=== PATIENT | male | born 1980 | race Caucasian/White ===

== ENCOUNTER 2016-10-10 07:44 | Emergency (ER) | payer SELFPAY ==
[~2016-10-10] VITALS: Ht 180.3 cm; Wt 94.5 kg
[~2016-10-10 07:44] MED LIST: CYCL-36 PO; MIRA33502 PO; MORP1INJ45 PO; NEUR800T PO; OXYC1TAB13 PO; SENO8.6T6 PO; TRAZ100T50 PO
[2016-10-10 07:54] VITALS: BP 113/78; PULSE 82; RESP 17; TEMP 98.5; O2SAT 97
--- NOTE | 2016-10-10 08:20 | PD ---
HPI Chief Complaint: Skin Problem Time Seen by Provider: 08:16 Travel History International Travel<30 days: No Contact w/Intl Traveler<30days: No Traveled to known affect area: No History of Present Illness HPI 36-year-old male presents to the ER today, states that 3 days ago he had a small cut on his left lower lip area, had brushed his dirty hand against it, and since then it has become more swollen, painful, pain is radiating up to his left jaw area. He has not been feeling well. He denies any fevers or any other issues. Pain in the left lower lip areas as 8 out of 10 currently. Modifying Factors: None Associated Signs & Symptoms: Left lower lip pain and swelling Risk Factors: None PFSH Past Medical History Medical History: Denies Significant Hx Cancer: No Cardiovascular Problems: No Endocrine: No Genitourinary: No Immune Disorder: No Musculoskeletal: No Neurologic: No Reproductive: No Respiratory: No Influenza Vaccination: No Past Surgical History Neurologic Surgery: Yes (C SPINE, HALO) Other Surgery: Yes (HALO) Social History Alcohol Use: Yes (OCC) Tobacco Use: Yes (1PPD) Substance Use: Yes Allergies-Medications (Allergen,Severity, Reaction): Coded Allergies: No Known Allergies (Verified , 10/10/16) Reported Meds & Prescriptions Reported Meds & Active Scripts Active No Active Prescriptions or Reported Medications Review of Systems Except as stated in HPI: all other systems reviewed are Neg Physical Exam Narrative GENERAL: Well-nourished, well-developed middle age white male patient in mild distress. SKIN: Focused skin assessment warm/dry. HEAD: Normocephalic. There is a 1 x 2 cm area of left lower lip edema, tenderness, fluctuance. Face is symmetrical with no facial swelling or erythema. EYES: No scleral icterus. No injection or drainage. NECK: Supple, trachea midline. No JVD or lymphadenopathy. CARDIOVASCULAR: Regular rate and rhythm without murmurs, gallops, or rubs. RESPIRATORY: Breath sounds equal bilaterally. No accessory muscle use. GASTROINTESTINAL: Abdomen soft, non-tender, nondistended. MUSCULOSKELETAL: No cyanosis, or edema. BACK: Nontender without obvious deformity. No CVA tenderness. Data Data Last Documented VS Vital Signs Date Time Temp Pulse Resp B/P Pulse Ox O2 Delivery O2 Flow Rate FiO2 10/10/16 07:54 98.5 82 17 113/78 97 Orders Lidocaine 2% Inj (Xylocaine 2% Inj) (10/10/16 08:30) MDM Medical Decision Making Medical Screen Exam Complete: Yes Emergency Medical Condition: Yes Medical Record Reviewed: Yes Differential Diagnosis Left lower lip swelling and paincellulitis versus abscess versus allergic reaction Narrative Course There is possibility of an abscess in this area. A attempt at abscess drainage was done without significant pus drainage. At this point, I plan would be to put the patient on antibiotics and have him return for any worsening in swelling or pain. The plan was discussed with him and he states understanding. Procedures Procedure Narrative The lower lip was cleaned and prepped with iodine and half cc of 2% lidocaine was placed on the lower lip area. And small incision was placed in the lower lip at place of greatest edema. However, there is not significant pus drainage at this time. Gauze was placed over the area until bleeding stopped. Patient tolerated procedure well. Diagnosis Primary Impression: Cellulitis of skin of lip Med/Other Pt SpecificInfo: Prescription(s) given Scripts Sulfamethoxazole-Trimethoprim (Bactrim DS)800-160 Mg Tab1 Tab PO BID #14 TAB Ref 0 Prov:Kieran Vargas MD 10/10/16 Ibuprofen (Motrin Ib)200 Mg Dzo218 Mg PO Q6H PRN (PAIN SCALE 1 TO 10) #21 TAB Ref 0 Prov:Kieran Vargas MD 10/10/16 Disposition: 01 DISCHARGE HOME Condition: Stable Kieran Vargas MD October 10, 2016 08:20
[2016-10-10] MEDS ORDERED: LIDOCAINE HCL 2% 50 ML VIAL INFIL ONE (08:30)
[2016-10-10] MEDS ORDERED: BACT800T5 PO (08:33)
[2016-10-10] MEDS ORDERED: MOTR200T4 PO (08:33)
[2016-10-10] MEDS ORDERED: IBUPROFEN 600 MG TAB PO ONE (08:45)
== END 2016-10-10 08:46 | disposition home or self-care (01) ==
LOC: PHEFT 07:44
DX: K13.0 Diseases of lips (principal)
CPT/HCPCS: 10060

== ENCOUNTER 2016-11-04 16:06 | Emergency (ER) | payer OTHER ==
[~2016-11-04] VITALS: Ht 180.3 cm; Wt 95.0 kg
[~2016-11-04 16:06] MED LIST changes: +BACT800T5 PO; -CYCL-36 PO; -MIRA33502 PO; -MORP1INJ45 PO; +MOTR200T4 PO; -NEUR800T PO; -OXYC1TAB13 PO; -SENO8.6T6 PO; -TRAZ100T50 PO
[2016-11-04 16:10] VITALS: BP 155/96; PULSE 102; RESP 14; O2SAT 97
[2016-11-04 16:18] VITALS: BP 155/96; PULSE 102; RESP 14; TEMP 98.8; O2SAT 99
[2016-11-04] MEDS ORDERED: MORPHINE SULFATE 4 MG/ML INJ IV ONE (16:30)
[2016-11-04] MEDS ORDERED: ONDANSETRON HCL 4 MG/2 ML VIAL IVP ONE (16:30)
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
[2016-11-04] MEDS ORDERED: ARTHTAB2 PO (19:02)
[2016-11-04] MEDS ORDERED: CYCL1TAB29 PO (19:02)
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
== END 2016-11-04 19:49 | disposition home or self-care (01) ==
LOC: NEPC 16:06
DX: S16.1XXA Strain of muscle, fascia and tendon at neck level, initial encounter (principal); R51 Headache; F17.210 Nicotine dependence, cigarettes, uncomplicated; Z98.1 Arthrodesis status; V43.52XA Car driver injured in collision with other type car in traffic accident, initial encounter; Y93.89 Activity, other specified; Y92.410 Unspecified street and highway as the place of occurrence of the external cause; Y99.8 Other external cause status
CPT/HCPCS: 70450; 72125; 96374; 96375; 99285; J2270; J2405; L0120

== ENCOUNTER 2017-06-23 09:30 | Emergency (ER) | payer SELFPAY ==
[~2017-06-23] VITALS: Ht 177.8 cm; Wt 83.0 kg
[~2017-06-23 09:30] MED LIST changes: +ARTHTAB2 PO; +CYCL10TA PO
[2017-06-23 09:35] VITALS: BP 133/85; PULSE 96; RESP 16; TEMP 97.9; O2SAT 99
[2017-06-23] MEDS ORDERED: methylPREDNISolone SOD SUCC 125 MG/2 ML VIAL IV PUSH ONE (10:00)
[2017-06-23] MEDS ORDERED: FAMOTIDINE 20 MG/2 ML VIAL IV PUSH ONE (10:00)
[2017-06-23] MEDS ORDERED: diphenhydrAMINE HCL 50 MG/ML VIAL IVP ONE (10:00)
--- NOTE | 2017-06-23 10:03 | PD ---
HPI Chief Complaint: Allergic/Adverse Reaction Time Seen by Provider: 09:42 Travel History International Travel<30 days: No Contact w/Intl Traveler<30days: No Traveled to known affect area: No History of Present Illness HPI 36yo M presents to the ED with periorbital edema and itching throughout his arms , chest and face today. 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 Yesterday he came into contact with poison shruthi and started itching but did not seek medical attention or take medication. It became worst today so he decided to come. Pt denies any chest pain, sob, tongue or lip swelling. Denies any n/v, abdominal pain. PFSH Past Medical History Cancer: No Cardiovascular Problems: No Diminished Hearing: No Endocrine: No Genitourinary: No Immune Disorder: No Musculoskeletal: No Neurologic: No Reproductive: No Respiratory: No Tetanus Vaccination: Unknown Influenza Vaccination: No Past Surgical History Neurologic Surgery: Yes (C SPINE, [facility]) Other Surgery: Yes (HALO) Social History Alcohol Use: Yes (OCC) Tobacco Use: Yes (2 PPD) Substance Use: Yes (occ THC) Allergies-Medications (Allergen,Severity, Reaction): Coded Allergies: No Known Allergies (Verified Adverse Reaction, Unknown, 06/23/17) Uncoded Allergies: poison shruthi (Allergy, Severe, Rash, 06/23/17) Reported Meds & Prescriptions Reported Meds & Active Scripts Active Review of Systems Except as stated in HPI: all other systems reviewed are Neg Physical Exam Narrative GENERAL: 36yo M in mild distress. SKIN: Diffuse erythema in bilateral forearm, chest. There are some excoriation from scratching. HEAD: Atraumatic. Normocephalic. EYES: +Bilateral periorbital edema. ENT: No tongue or lip swelling. Uvula midline and no edematous. NECK: Trachea midline. No JVD. CARDIOVASCULAR: Regular rate and rhythm. No murmur appreciated. RESPIRATORY: No accessory muscle use. Clear to auscultation. Breath sounds equal bilaterally. GASTROINTESTINAL: Abdomen soft, non-tender, nondistended. MUSCULOSKELETAL: No obvious deformities. No clubbing. No cyanosis. No edema. NEUROLOGICAL: Awake and alert. No obvious cranial nerve deficits. Motor grossly within normal limits. Normal speech. PSYCHIATRIC: Appropriate mood and affect; insight and judgment normal. Data Data Last Documented VS Vital Signs Date Time Temp Pulse Resp B/P (MAP) Pulse Ox O2 Delivery O2 Flow Rate FiO2 06/23/17 09:35 97.9 96 16 133/85 (101) 99 Orders Orders Diphenhydramine Inj (Benadryl Inj) (06/23/17 10:00) Methylprednisolone So Succ Inj (Solumedr (06/23/17 10:00) Famotidine Inj (Pepcid Inj) (06/23/17 10:00) MDM Medical Decision Making Medical Screen Exam Complete: Yes Emergency Medical Condition: Yes Differential Diagnosis Allergic reaction to poison shruthi Narrative Course 36yo M with allergic reaction to poison shruthi. Pt only has symptoms in one system and no anaphylaxis. Will give methylprednisolone, diphenhydramine and famotidine. Pt reevaluated after medications and feel much. Pt is no longer itching. Periorbital swelling has improved as well. Still denies any sob, lip or tongue swelling. Return precautions given. Will give a few days of keflex for cellulitis because pt has been scratching his bilateral arms a lot and there are some open wounds from scratching. Diagnosis Primary Impression: Allergic reaction Qualified Codes: T78.40XA - Allergy, unspecified, initial encounter Patient Instructions: General Instructions Departure Forms: Tests/Procedures Additional Instructions: Please follow up with your primary care physician in 2-3 days. Return to the ED if symptoms worsen. Med/Other Pt SpecificInfo: Prescription(s) given Scripts Cephalexin (Keflex) 500 Mg Cap 500 MG PO Q12H for Infection for 7 Days, #14 CAP 0 Refills Prov: Paola Delong DO 06/23/17 Diphenhydramine (Diphenhydramine) 25 Mg Cap 25 MG PO Q6H Y for ALLERGIES for 5 Days, #20 CAP 0 Refills Prov: Paola Delong DO 06/23/17 Prednisone (Deltasone) 20 Mg Tab 20 MG PO BID for 5 Days, #10 TAB 0 Refills Prov: Paola Delong DO 06/23/17 Disposition: 01 DISCHARGE HOME Condition: Stable Paola Delong DO Jun 23, 2017 10:03
[2017-06-23] MEDS ORDERED: CEPH-460 PO (11:42)
[2017-06-23] MEDS ORDERED: DIPH25CA PO (11:42)
[2017-06-23] MEDS ORDERED: PRED-503 PO (11:42)
== END 2017-06-23 13:53 | disposition home or self-care (01) ==
LOC: PHED 09:30
DX: T78.40XA Allergy, unspecified, initial encounter (principal); F17.210 Nicotine dependence, cigarettes, uncomplicated
CPT/HCPCS: 96374; 96375; 99284; J1200; J2930